=== PATIENT | female | born 1955 | race Caucasian/White ===

== ENCOUNTER 2017-05-26 20:22 | Inpatient (IN) | payer OTHER ==
[~2017-05-26] VITALS: Ht 175.3 cm; Wt 96.7 kg
[2017-05-26 22:44] LABS: HEMATOCRIT 28.6 % (36.0-46.0); MCHC 31.5 G/DL (30.0-36.0); MCV 95.3 FL (83-99); MEAN PLAT.VOLUME 9.6 uM^3 (9.5-12.4); PLATELET COUNT 161 K/uL (156-360); RBC DIS.WIDTH-CV 22.1 % (11.8-14.6); RBC DIS.WIDTH-SD 75.7 % (39-53); WHITE BLOOD COUNT 6.3 K/uL (4.1-10.2)
[2017-05-26 22:47] LABS: EOSINOPHIL (%) 2.7 % (0-5); EOSINOPHIL COUNT 0.2 K/uL (0-0.3); IMMATURE GRANULOCYTE (%) 0.5 % (0.0-0.7); INSTRUMENT ABS NEUTROPHIL CT 4.2 K/uL; LYMPHOCYTE COUNT 1.3 K/uL (1.0-2.8); MONOCYTE (%) 9.2 % (3-12); MONOCYTE COUNT 0.6 K/uL (0-0.8); NEUTROPHIL (%) 66.9 % (45-76); NEUTROPHIL COUNT 4.2 K/uL (1.8-6.4)
[2017-05-26 22:56] LABS: CHLORIDE 125 mEq/L (99-109); POTASSIUM 4.1 mEq/L (3.7-5.4)
[2017-05-26 22:57] LABS: SODIUM 138 mEq/L (136-147)
[2017-05-26 22:59] LABS: GLUCOSE 89 mg/dL (70-99)
[2017-05-26 23:00] LABS: ANION GAP 5 MEQ/L (2-14)
[2017-05-26 23:01] LABS: TOTAL BILIRUBIN 1.2 mg/dL (0.0-1.0)
[2017-05-26 23:02] LABS: ALKALINE PHOSPHATASE 201 IU/L (3-129)
[2017-05-26 23:03] LABS: GFR ESTIMATE (CALCULATED) > 59 mL/min/
[2017-05-26 23:04] LABS: DIRECT BILIRUBIN 0.6 mg/dL (0.0-0.3); UREA NITROGEN (BUN) 28 mg/dL (9-23)
[2017-05-26 23:05] LABS: TROP-I INTERPRETATION NEGATIVE; TROPONIN-I 0.02 ng/mL (0.0-0.30)
[2017-05-26 23:45] LABS: BASE EXCESS -18.1 mEq/L (-3 to +3); BICARBONATE 8.2 mEq/L (22-26); CARBOXY HGB 2.3 % (0-5); METHEMOGLOBIN 1.4 % (0-1.5); PCO2 21 mm Hg (35-45); PO2 152 mm Hg (80-100)
[2017-05-26 23:46] LABS: COMMENTS - BLOOD GASES A+C+; DEVICE NC; O2 FLOW 2 L/MIN; SITE LR; TOTAL RESP RATE 15 resp/min
[2017-05-26 23:55] LABS: ADD MIUA? YES; BILIRUBIN NEGATIVE; BLOOD LARGE; COLOR AMBER ((YELLOW)); GLUCOSE (STRIP) NEGATIVE; KETONES NEGATIVE; LEUKOCYTES LARGE; NITRITE NEGATIVE; PROTEIN (STRIP) 100; SPECIFIC GRAVITY 1.012 (1.000-1.030); UROBILINOGEN 0.2 MG/DL (0.2-1.0)
[2017-05-27] VITALS (19 sets, daily range): BP systolic 81–123; BP diastolic 24–93
[2017-05-27 00:14] LABS: RED BLOOD CELLS 40-50 /HPF (0-5)
[2017-05-27 00:15] LABS: BACTERIA 3+ /HPF; CASTS NONE SEEN /LPF; EPITHELIAL CELLS 1+ /HPF; MUCUS NONE SEEN /LPF; UCUL ADDED? YES
[2017-05-27 00:16] LABS: OTHER BUDDING YEAST; WHITE BLOOD CELLS 40-50 /HPF (0-5)
[2017-05-27 02:33] LABS: CARBON DIOXIDE (BICARBONATE) 11.1 MEQ/L (20-31)
[2017-05-27 02:42] LABS: HEMATOCRIT 27.5 % (36.0-46.0); MCV 97.2 FL (83-99)
[2017-05-27 05:22] LABS: METH RESISTANT S AUREUS PCR NEGATIVE (NEGATIVE)
[2017-05-27 05:32] LABS: PROBE CHECK PASS; SPECIMEN PROCESSING CONTROL PASS
[2017-05-27] MEDS ORDERED: FEOSOL325 MG PO (05:52)
[2017-05-27] MEDS ORDERED: CALCIUM600 M1 PO (05:52)
[2017-05-27] MEDS ORDERED: FOLIC ACID0.8 MG PO (05:53)
[2017-05-27] MEDS ORDERED: FUROSEMIDE80 MG PO (05:54)
[2017-05-27] MEDS ORDERED: GABAPENTIN300 MG PO (05:55)
[2017-05-27] MEDS ORDERED: LEVOTHYROXINE125 MCG PO (05:56)
[2017-05-27] MEDS ORDERED: ONCE DAILY1 EACH PO (05:57)
[2017-05-27] MEDS ORDERED: NADOLOL20 MG PO (05:58)
[2017-05-27] MEDS ORDERED: PANTOPRAZOLE SO40 MG PO (05:58)
[2017-05-27] MEDS ORDERED: MIRTAZAPINE7.5 MG PO (05:59)
[2017-05-27] MEDS ORDERED: THIAMINE HCL100 MG PO (06:00)
[2017-05-27] MEDS ORDERED: VITAMIN D31000 UNIT PO (06:01)
[2017-05-27] MEDS ORDERED: LOVENOX40 MG/0.4 SC (06:02)
[2017-05-27] MEDS ORDERED: K-DUR20 MEQ PO (06:08)
[2017-05-27] MEDS ORDERED: FLORASTOR250 MG PO (06:09)
[2017-05-27] MEDS ORDERED: CONSTULOSE10 GM/15 M PO (10:52)
[2017-05-27] MEDS ORDERED: FLAGYL500 MG PO (11:08)
[2017-05-27] MEDS ORDERED: OXYCODONE HCL10 MG PO (11:10)
[2017-05-27] MEDS ORDERED: ZOFRAN4 MG PO (11:13)
[2017-05-27] MEDS ORDERED: ALDACTONE100 MG PO (11:16)
[2017-05-28] VITALS (19 sets, daily range): BP systolic 50–144; BP diastolic 28–90
[2017-05-28 00:51] LABS: C DIFF TOXIN NEGATIVE (NEGATIVE)
[2017-05-28 00:56] LABS: PROBE CHECK PASS; SPECIMEN PROCESSING CONTROL PASS
[2017-05-28 04:46] LABS: EOSINOPHIL (%) 2.1 % (0-5); EOSINOPHIL COUNT 0.1 K/uL (0-0.3); HEMATOCRIT 26.6 % (36.0-46.0); IMMATURE GRANULOCYTE (%) 0.5 % (0.0-0.7); INSTRUMENT ABS NEUTROPHIL CT 2.9 K/uL; LYMPHOCYTE COUNT 0.8 K/uL (1.0-2.8); MCH 29.6 PG (29.0-34.0); MCHC 30.8 G/DL (30.0-36.0); MEAN PLAT.VOLUME 9.1 uM^3 (9.5-12.4); MONOCYTE (%) 10.7 % (3-12); MONOCYTE COUNT 0.5 K/uL (0-0.8); NEUTROPHIL (%) 68.6 % (45-76); NEUTROPHIL COUNT 2.9 K/uL (1.8-6.4); PLATELET COUNT 118 K/uL (156-360); RBC DIS.WIDTH-CV 22.1 % (11.8-14.6); RED BLOOD COUNT 2.77 M/uL (3.80-5.20); WHITE BLOOD COUNT 4.3 K/uL (4.1-10.2)
[2017-05-28 05:02] LABS: CHLORIDE 125 mEq/L (99-109); MAGNESIUM 1.1 mg/dL (1.3-2.7); SODIUM 142 mEq/L (136-147)
[2017-05-28 05:03] LABS: POTASSIUM 2.9 mEq/L (3.7-5.4)
[2017-05-28 05:06] LABS: ANION GAP 4 MEQ/L (2-14); TOTAL BILIRUBIN 1.3 mg/dL (0.0-1.0)
[2017-05-28 05:08] LABS: ALKALINE PHOSPHATASE 164 IU/L (3-129); GFR ESTIMATE (CALCULATED) > 59 mL/min/
[2017-05-28 05:09] LABS: UREA NITROGEN (BUN) 21 mg/dL (9-23)
[2017-05-28 05:12] LABS: GLUCOSE 144 mg/dL (70-99)
[2017-05-28 07:18] LABS: IMM.RETIC FRACTION 22.5 % (3-19); RETIC HGB EQUIVALENT 33.3 (28-36)
[2017-05-28 08:29] LABS: PREALBUMIN 5.9 mg/dL (10-40)
[2017-05-28 18:51] LABS: ANION GAP 7 MEQ/L (2-14); CHLORIDE 121 MEQ/L (99-109); GFR ESTIMATE (CALCULATED) > 59 mL/min/; GLUCOSE 171 mg/dL (70-99); POTASSIUM 3.3 MEQ/L (3.7-5.4); SAMPLE HEMOLYSIS CHECK 0; SAMPLE ICTERIC CHECK 0; SAMPLE LIPEMIA CHECK 0; SODIUM 143 MEQ/L (136-147); UREA NITROGEN (BUN) 17 mg/dL (9-23)
[2017-05-29] VITALS (13 sets, daily range): BP systolic 69–125; BP diastolic 33–58
[2017-05-29 10:01] LABS: EOSINOPHIL (%) 2.2 % (0-5); EOSINOPHIL COUNT 0.2 K/uL (0-0.3); HEMATOCRIT 27.2 % (36.0-46.0); IMMATURE GRANULOCYTE (%) 0.3 % (0.0-0.7); INSTRUMENT ABS NEUTROPHIL CT 4.5 K/uL; LYMPHOCYTE COUNT 1.4 K/uL (1.0-2.8); MCH 29.9 PG (29.0-34.0); MCHC 31.6 G/DL (30.0-36.0); MCV 94.4 FL (83-99); MEAN PLAT.VOLUME 9.3 uM^3 (9.5-12.4); MONOCYTE COUNT 0.8 K/uL (0-0.8); NEUTROPHIL (%) 65.6 % (45-76); NEUTROPHIL COUNT 4.5 K/uL (1.8-6.4); PLATELET COUNT 127 K/uL (156-360); RBC DIS.WIDTH-CV 22.5 % (11.8-14.6); RED BLOOD COUNT 2.88 M/uL (3.80-5.20); WHITE BLOOD COUNT 6.8 K/uL (4.1-10.2)
[2017-05-29 10:10] LABS: CHLORIDE 122 mEq/L (99-109); POTASSIUM 3.8 mEq/L (3.7-5.4); SODIUM 145 mEq/L (136-147)
[2017-05-29 10:11] LABS: MAGNESIUM 1.5 mg/dL (1.3-2.7)
[2017-05-29 10:12] LABS: GLUCOSE 165 mg/dL (70-99)
[2017-05-29 10:13] LABS: ANION GAP 4 MEQ/L (2-14)
[2017-05-29 10:16] LABS: GFR ESTIMATE (CALCULATED) > 59 mL/min/
[2017-05-29 10:17] LABS: UREA NITROGEN (BUN) 14 mg/dL (9-23)
[2017-05-30] VITALS (8 sets, daily range): BP systolic 0–135; BP diastolic 0–58
[2017-05-30 05:13] LABS: CHLORIDE 125 mEq/L (99-109); POTASSIUM 3.9 mEq/L (3.7-5.4); SODIUM 146 mEq/L (136-147)
[2017-05-30 05:15] LABS: GLUCOSE 121 mg/dL (70-99)
[2017-05-30 05:17] LABS: ANION GAP 4 MEQ/L (2-14)
[2017-05-30 05:19] LABS: GFR ESTIMATE (CALCULATED) > 59 mL/min/
[2017-05-30 05:20] LABS: UREA NITROGEN (BUN) 12 mg/dL (9-23)
[2017-05-30 05:45] LABS: MAGNESIUM 2.2 mg/dL (1.3-2.7)
[2017-05-31] VITALS (7 sets, daily range): BP systolic 0–128; BP diastolic 0–65
[2017-05-31 05:24] LABS: CHLORIDE 121 mEq/L (99-109); POTASSIUM 3.2 mEq/L (3.7-5.4); SODIUM 144 mEq/L (136-147)
[2017-05-31 05:26] LABS: GLUCOSE 117 mg/dL (70-99)
[2017-05-31 05:28] LABS: ANION GAP 5 MEQ/L (2-14)
[2017-05-31 05:30] LABS: GFR ESTIMATE (CALCULATED) > 59 mL/min/
[2017-05-31 05:31] LABS: UREA NITROGEN (BUN) 10 mg/dL (9-23)
[2017-05-31 05:48] LABS: MAGNESIUM 1.8 mg/dL (1.3-2.7)
[2017-05-31 05:49] LABS: EOSINOPHIL (%) 2.9 % (0-5); EOSINOPHIL COUNT 0.2 K/uL (0-0.3); HEMATOCRIT 26.7 % (36.0-46.0); IMMATURE GRANULOCYTE (%) 0.4 % (0.0-0.7); INSTRUMENT ABS NEUTROPHIL CT 4.6 K/uL; LYMPHOCYTE COUNT 1.4 K/uL (1.0-2.8); MCH 30.3 PG (29.0-34.0); MCHC 31.1 G/DL (30.0-36.0); MCV 97.4 FL (83-99); MEAN PLAT.VOLUME 9.4 uM^3 (9.5-12.4); MONOCYTE (%) 9.3 % (3-12); MONOCYTE COUNT 0.6 K/uL (0-0.8); NEUTROPHIL (%) 66.4 % (45-76); NEUTROPHIL COUNT 4.6 K/uL (1.8-6.4); PLATELET COUNT 106 K/uL (156-360); RBC DIS.WIDTH-CV 21.8 % (11.8-14.6); RBC DIS.WIDTH-SD 75.7 % (39-53); RED BLOOD COUNT 2.74 M/uL (3.80-5.20); WHITE BLOOD COUNT 6.9 K/uL (4.1-10.2)
[2017-06-01] VITALS (7 sets, daily range): BP systolic 86–114; BP diastolic 41–60
[2017-06-01 05:56] LABS: EOSINOPHIL (%) 2.8 % (0-5); EOSINOPHIL COUNT 0.1 K/uL (0-0.3); IMMATURE GRANULOCYTE (%) 0.2 % (0.0-0.7); INSTRUMENT ABS NEUTROPHIL CT 3.3 K/uL; LYMPHOCYTE COUNT 1.2 K/uL (1.0-2.8); MCH 30.7 PG (29.0-34.0); MCHC 31.6 G/DL (30.0-36.0); MCV 97.3 FL (83-99); MONOCYTE (%) 7.9 % (3-12); MONOCYTE COUNT 0.4 K/uL (0-0.8); NEUTROPHIL (%) 64.7 % (45-76); NEUTROPHIL COUNT 3.3 K/uL (1.8-6.4); NRBC (%) 0.4 /100 WBC (0-0); PLATELET COUNT 99 K/uL (156-360); RBC DIS.WIDTH-CV 20.7 % (11.8-14.6); RBC DIS.WIDTH-SD 72.8 % (39-53); RED BLOOD COUNT 2.57 M/uL (3.80-5.20)
[2017-06-01 07:25] LABS: ANION GAP 6 MEQ/L (2-14); CHLORIDE 118 MEQ/L (99-109); GFR ESTIMATE (CALCULATED) > 59 mL/min/; POTASSIUM 3.3 MEQ/L (3.7-5.4); SAMPLE HEMOLYSIS CHECK 0; SAMPLE ICTERIC CHECK 0; SAMPLE LIPEMIA CHECK 0; SODIUM 141 MEQ/L (136-147); UREA NITROGEN (BUN) 9 mg/dL (9-23)
[2017-06-01 07:26] LABS: GLUCOSE 72 mg/dL (70-99)
[2017-06-01] MEDS ORDERED: MAG-OXIDE400 MG PO (14:12)
[2017-06-01] MEDS ORDERED: NABI650T PO (14:12)
[2017-06-01] MEDS ORDERED: CEFEPIME HCL1 GM IM (14:17)
[2017-06-01] MEDS ORDERED: NEUTRA-PHOS,1 PACKET PO (14:18)
[2017-06-02 00:07] VITALS: BP 87/50
[2017-06-02 04:47] VITALS: BP 89/53
[2017-06-02 07:02] LABS: EOSINOPHIL (%) 2.4 % (0-5); EOSINOPHIL COUNT 0.1 K/uL (0-0.3); HEMATOCRIT 25.8 % (36.0-46.0); IMMATURE GRANULOCYTE (%) 0.3 % (0.0-0.7); INSTRUMENT ABS NEUTROPHIL CT 3.8 K/uL; LYMPHOCYTE COUNT 1.3 K/uL (1.0-2.8); MCH 31.1 PG (29.0-34.0); MCHC 32.2 G/DL (30.0-36.0); MCV 96.6 FL (83-99); MEAN PLAT.VOLUME 10.9 uM^3 (9.5-12.4); MONOCYTE (%) 8.5 % (3-12); MONOCYTE COUNT 0.5 K/uL (0-0.8); NEUTROPHIL (%) 66.3 % (45-76); NEUTROPHIL COUNT 3.8 K/uL (1.8-6.4); PLATELET COUNT 105 K/uL (156-360); RBC DIS.WIDTH-CV 19.8 % (11.8-14.6); RED BLOOD COUNT 2.67 M/uL (3.80-5.20); WHITE BLOOD COUNT 5.8 K/uL (4.1-10.2)
[2017-06-02 07:22] LABS: ANION GAP 5 MEQ/L (2-14); CHLORIDE 113 MEQ/L (99-109); GFR ESTIMATE (CALCULATED) > 59 mL/min/; GLUCOSE 67 mg/dL (70-99); POTASSIUM 3.5 MEQ/L (3.7-5.4); SAMPLE HEMOLYSIS CHECK 0; SAMPLE ICTERIC CHECK 0; SAMPLE LIPEMIA CHECK 0; SODIUM 135 MEQ/L (136-147); UREA NITROGEN (BUN) 8 mg/dL (9-23)
[2017-06-02 08:17] VITALS: BP 120/64
[2017-06-02 12:04] VITALS: BP 124/72
== END 2017-06-02 16:00 | disposition designated cancer center or children's hospital (05) | DRG 388 ==
LOC: EME 20:22 → 4WEST 05-27 03:09 → EDOF 05-27 03:09 → ENRESERV 05-27 03:12 → EDOF 05-27 03:27 → 4WEST 05-27 03:51 → ENRESERV 06-01 17:33 → 5SOUTH 06-01 20:38
PROVIDERS: Emergency Medicine; Internal Medicine; Internal Medicine Nephrology; Surgery
DX: K56.7 Ileus, unspecified (principal); K56.60 Unspecified intestinal obstruction; G93.41 Metabolic encephalopathy; E87.2 Acidosis; E87.6 Hypokalemia; E43 Unspecified severe protein-calorie malnutrition; E86.0 Dehydration; A04.7 Enterocolitis due to Clostridium difficile; E03.9 Hypothyroidism, unspecified; G62.9 Polyneuropathy, unspecified; K31.84 Gastroparesis; L89.612 Pressure ulcer of right heel, stage 2; L89.890 Pressure ulcer of other site, unstageable; R21 Rash and other nonspecific skin eruption; E87.8 Other disorders of electrolyte and fluid balance, not elsewhere classified; T84.030S Mechanical loosening of internal right hip prosthetic joint, sequela; M25.551 Pain in right hip; Y79.2 Prosthetic and other implants, materials and accessory orthopedic devices associated with adverse incidents; M86.68 Other chronic osteomyelitis, other site; E83.39 Other disorders of phosphorus metabolism; G89.29 Other chronic pain; K70.30 Alcoholic cirrhosis of liver without ascites; F10.21 Alcohol dependence, in remission; E66.9 Obesity, unspecified; Z68.31 Body mass index [BMI] 31.0-31.9, adult; Z74.01 Bed confinement status; Z87.440 Personal history of urinary (tract) infections; Z87.81 Personal history of (healed) traumatic fracture
CPT/HCPCS: 36600; 70450; 71010; 72170; 73551; 74000; 74020; 74177; 80048; 80048 91; 80053; 80076; 81003; 82010; 82140; 82803; 83605; 83735; 84100; 84134; 84484; 85014; 85018; 85025; 85045; 86900; 86901; 86920; 87040; 87086; 87493; 87641; 93005; 97530 GO; 99281; 99285; J0692; J1650; J2060; J2270; J2710; J2765; J3475; J3480; J7030; J7040; J7050; J7070; S0030